=== PATIENT | male | born 1980 | race Caucasian/White ===

== ENCOUNTER 2019-04-16 20:56 | Emergency (ER) | payer OTHER ==
[2019-04-16] MEDS ORDERED: SODIUM CHLORIDE 1,000 ML IV ONE (21:25)
[2019-04-16 21:32] VITALS: BP 143/95; PULSE 94; TEMP 98; BMI 32.5
[2019-04-16] MEDS ORDERED: INSULIN REGULAR HUMAN 100 UNITS/ML *VIAL IVPUSH ONE (21:38)
[2019-04-16] MEDS ORDERED: INSULIN REGULAR HUMAN 100 UNITS/ML *VIAL ONE (21:42)
--- NOTE | 2019-04-16 21:43 | PDOC ---
Documentation entered by Nataly Bowles SCRIBE, acting as scribe for Pippa Farfan MD. Pippa Farfan MD: This documentation has been prepared by the Wilbur tejeda Adrianna, SCRIBE, under my direction and personally reviewed by me in its entirety. I confirm that the documentation accurately reflects all work, treatment, procedures, and medical decision making performed by me. History of Present Illness - General Chief Complaint: Blood Sugar Problem Stated Complaint: HIGH BLOOD SUGAR History Source: Patient Exam Limitations: No Limitations - History of Present Illness Initial Comments: The patient is a 38 year old male, with a significant PMH of DMI, who presents to the ED for evaluation of high blood sugar. Patient notes he recently got a new insulin pump, and tonight noticed that he saw liquid leaking from the pump for ~2 hours. When he measured his sugar, he noticed it was elevated to the 500s. Patient is not from the area, and did not have any injectable insulin on hand at the moment. Denies any other complaints at this time. PAST MEDICAL HISTORY: Type I Diabetic PAST SURGICAL HISTORY: no significant history FAMILY HISTORY: no pertinent history SOCIAL HISTORY: Pt lives with family and is employed. MEDICATIONS: reviewed ALLERGIES: As per nursing notes ROS General: +Leaking insulin pump with elevated blood sugar levels. No fevers or chills, no weakness, no weight loss HEENT: No change in vision. No sore throat,. No ear pain CardioVascular: No chest pain or shortness of breath Respiratory:No cough, or wheezing. Gastrointestinal: no nausea, vomiting, diarrhea or constipation, No rectal bleeding Genitourinary: No dysuria, hematuria, or frequency Musculoskeletal: No joint or muscle pain or swelling Neurologic: No headache, vertigo, dizziness or loss of consciousness Psychiatric: nor depression Skin: No rashes or easy bruising Endocrine: no increased thirst or abnormal weight change Allergic: no skin or latex allergy All other systems reviewed and normal Physical Exam GENERAL: The patient is awake, alert, and fully oriented, in no acute distress. HEAD: Normal with no signs of trauma. EYES: Pupils equal, round and reactive to light, extraocular movements intact, sclera anicteric, conjunctiva clear. EXTREMITIES: Normal range of motion, no edema. NEUROLOGICAL: Normal speech, normal gait. PSYCH: Normal mood, normal affect. SKIN: Warm, Dry, normal turgor, no rashes or lesions noted. 04/16/19 21:42 Assessment and plan: This is a 38-year-old male who comes in complaining of high blood sugar. Patient is a type I diabetic. Patient got a new insulin pump today. Here in the emergency department his sugar was 571. Patient said when he takes his pump off and is dispensing insulin. I will give patient 10 units of insulin some fluids and send off basic labs. If patient's sugar normalizes as he will be discharged home. 04/16/19 22:42 Reevaluation patient's blood sugar now 230 patient feels much better. Blood work-up unremarkable with the exception of an elevated glucose and a small amount of ketones in the urine. Patient discharged we will follow-up with his primary care doctor as needed Past History - Past Medical History Allergies/Adverse Reactions: Allergies Allergy/AdvReac Type Severity Reaction Status Date / Time No Known Allergies Allergy Verified 04/16/19 20:59 Home Medications: Ambulatory Orders Insulin Aspart [Novolog] 100 unit SQ ASDIR 04/16/19 *Physical Exam - Vital Signs Last Vital Signs Temp Pulse Resp BP Pulse Ox 98.0 F 94 H 18 143/95 98 04/16/19 20:58 04/16/19 20:58 04/16/19 20:58 04/16/19 20:58 04/16/19 20:58 ED Treatment Course - LABORATORY CBC & Chemistry Diagram: 04/16/19 21:30 04/16/19 21:30 - ADDITIONAL ORDERS Additional order review: Laboratory Results 04/16/19 21:22 POC Glucometer 571 04/16/19 21:22 POC Glucometer 571 Discharge - Discharge Information Problems reviewed: Yes Clinical Impression/Diagnosis: Hyperglycemia Condition: Good Disposition: HOME - Admission No - Follow up/Referral - Patient Discharge Instructions Additional Instructions: Return to the emergency department immediately with ANY new, persistent or worsening symptoms. Continue any medications as previously prescribed by your physician. You should follow up with your primary doctor as soon as possible regarding today's emergency department visit. . Please make sure your doctor reviews the results of your emergency evaluation. Thank you for coming to the Emergency Department today for your care. It was a pleasure to see you today. Please note that your evaluation is INCOMPLETE until you follow-up with your doctor. - Post Discharge Activity
[2019-04-16 21:58] LABS: BASO % 0.2 % (0-2.0); HEMATOCRIT 43.3 % (35.4-49); HEMOGLOBIN 14.4 GM/dl (11.7-16.9); LYMPH % 20.9 % (8-40); MCH 29.9 pg (25.7-33.7); MCHC 33.2 g/dl (32.0-35.9); MEAN CELL VOLUME 90.3 fl (80-96); MEAN PLT VOLUME 11.1 fl (7.5-11.1); MONO % 7.3 % (3.8-10.2); NEUT % 70.6 % (42.8-82.8); PLATELET COUNT 153 K/MM3 (134-434); RBC 4.79 M/mm3 (4.00-5.60); RDW 13.1 % (11.9-15.9); WHITE BLOOD COUNT 8.9 K/mm3 (4.0-10.8)
[2019-04-16 22:05] LABS: BILIRUBIN,TOTAL 1.2 mg/dl (0.2-1); CALCIUM 8.6 mg/dl (8.5-10); CREATININE 1.3 mg/dl (0.55-1.3); POTASSIUM 4.4 mmol/L (3.5-5.1); TOT PROT 7.2 g/dl (6.4-8.2)
== END 2019-04-16 22:48 | disposition home or self-care (01) ==
LOC: FER 20:56
PROC: 3E033VG Introduction of Insulin into Peripheral Vein, Percutaneous Approach (ICD-10-PCS; principal; 2019-04-16)
PROC: 3E0337Z Introduction of Electrolytic and Water Balance Substance into Peripheral Vein, Percutaneous Approach (ICD-10-PCS; 2019-04-16)
DX: E10.65 Type 1 diabetes mellitus with hyperglycemia (principal); Z79.4 Long term (current) use of insulin
CPT/HCPCS: 36415; 80053; 81003; 82962; 85025; 99284-25; J7030